=== PATIENT | female | born 2000 | race Caucasian/White ===

== ENCOUNTER 2024-01-25 08:14 | Inpatient (IN) | payer OTHER, BC, SELFPAY ==
[2024-01-25] VITALS (39 sets, daily range): BP systolic 79–128; BP diastolic 46–84; PULSE 78–137; RESP 16; TEMP 36.3–37.4; O2SAT 75–100; BMI 31.7; BMI 24.4
--- NOTE | 2024-01-25 08:25 | ED.RN ---
incorrect weight entered in error. actual weight is 147lbs
[2024-01-25] MEDS: Lactated Ringers 1,000 ML 200 ML IV ×2 (09:30→14:05)
[2024-01-25 09:38] LABS: Absolute Neutrophil Count 7.7 X10^3/uL (2.0-7.7); Basophil# 0.03 X10^3/uL; Basophil% 0.3 % (0-1); Eosinophil# 0.05 X10^3/uL; Eosinophils% 0.5 % (0-5); Hemoglobin 14.4 g/dL (12.0-15.0); Lymphocyte % 13.6 % (19-41); Mean Corp Hgb Conc 34.3 g/dL (32-36); Mean Corpuscular Hgb 29.9 pg (27.0-32.0); Mean Corpuscular Volume 87.3 fL (81-99); Mean Platelet Vol. 9.6 fl (6.2-12.0); Monocyte# 0.43 X10^3/uL; Monocyte% 4.5 % (0-10); NRBC Flagged by Analyzer 0 % (0-5); Neutrophil # 7.65 X10^3/uL (2.7-7.7); Neutrophil % 80.2 % (47-70); Platelet Count 233 K/mm3 (150-450); RBC Distribution Width CV 12.6 % (11.6-14.6); RBC Distribution Width SD 39.6 fl (35.1-43.9); Red Blood Count 4.81 M/mm3 (4.2-5.4); White Blood Count 9.6 K/mm3 (4.4-11.0)
[2024-01-25 09:54] LABS: Prothrombin Time (Protime)PT. 13.3 SECONDS (11.7-14.9)
[2024-01-25 10:36] LABS: Fibrinogen 541 mg/dl (203-444)
[2024-01-25 10:46] LABS: Syphilis Antibodies Non-reactive
--- NOTE | 2024-01-25 12:20 | PCM.HP.OB ---
HPI - General General Date of Admission: 01/25/24 Date of Service: 01/25/24 HPI Narrative CASIE DUNCAN, is a 23 F who presents with vaginal bleeding. Maternal Data Information Final ADRIEL: [birth year] Gestational age: 38&3 PFSH PFSH Allergy/AdvReac Type Severity Reaction Status Date / Time No Known Allergies Allergy Verified 06/01/15 14:53 Surgical History History of surgery Social History Smoking Status: Never smoker History Elective abortions Hx Para 0 Spontaneous abortions Hx # Term Pregnancies Ectopic pregnancies Hx # Pregnancies Multiple births # of living children NST FHR Rate Baby A Baseline: 130 Variability:: Moderate Accelerations:: 15 x 15 Decelerations:: None Uterine Activity:: Q 2-5 minutes Vital Signs Vital Signs Vital Signs: 01/25/24 08:07 01/25/24 08:07 01/25/24 10:41 Temperature Temperature Source Temporal Pulse Rate 86 Respiratory Rate Blood Pressure 112/84 H BP Systolic 112 BP Diastolic 84 01/25/24 10:41 01/25/24 10:41 01/25/24 10:41 Temperature Temperature Source Pulse Rate 84 Respiratory Rate 16 Blood Pressure 109/76 BP Systolic 109 BP Diastolic 76 01/25/24 10:41 Temperature 97.4 F L Temperature Source Pulse Rate Respiratory Rate Blood Pressure BP Systolic BP Diastolic Weight Weight: 147 lb Body Mass Index (BMI) 24.4 Physical Exam Const alert, oriented x3 and no apparent distress GI soft to palpation, non-tender and non-distended Inspection: gravid external exam normal Narrative: cvx - 5/90/-2, AROM blood tinged fluid Labs Labs Labs: Blood Type A POSITIVE Antibody Screen NEGATIVE Hct 42.0 % (37-47) Hgb 14.4 g/dL (12.0-15.0) Syphilis Total Ab Non-reactive see [facility] H&P Assessment & Plan (1) 38 weeks gestation of : COMMENT: @ 38&3 (2) Vaginal bleeding: PLAN: Plan Admit to L&D Vaginal bleeding - suspect placenta abruption. Placental abruption labs normal. AROM & IUPC placed. Will start pitocin if needed for augementation. Pain - epidural as desired GBS negative EFW - less than 4500g and patient with adequate pelvis ROutine care
[2024-01-25] MEDS: Oxytocin 15 Units/NS 250ml 15 UNITS/250 ML IV.SOLN 2 UNITS IV (12:41)
[2024-01-25] MEDS: LACTATED RINGERS 500 ML 999 ML IV (15:15)
[2024-01-25] MEDS: fentaNYL-bupivacaine (epidural) 100 ML BAG EPIDURAL (16:16)
--- NOTE | 2024-01-25 16:32 | EX.PCM.OBRPT ---
Maternal Data Information Final ADRIEL: [birth year] Gestational age: 38&3 Vaginal Delivery Maternal Presentation Maternal Presentation: Active Labor Operative Information Date of Procedure: 01/25/24 Pre-Operative Diagnosis: (1) Labor (2) Suspected placental abruption Post-Operative Diagnosis: Same Surgery / Procedure Performed: Vacuum Assisted Vaginal Delivery Type of Anesthesia: Epidural Estimated Blood Loss: 300ml Findings Description of Procedure: Patient prepped & draped when C/C/+2. She pushed well but fhts persisted in the 50's. Decision made to use vacuum. head position had already been confirmed. Vacuum was placed on head and positioning confirmed. With one gentle pull and good maternal pushing the head delivered. Vacuum released and then head gently guided to allow delivery of anterior and posterior shoulders. No excess traction placed on head. Body delivered and 3VC clamped & cut in delayed fashion. Placenta delivered with gentle traction and good uterine tone obtained. Presentation: LETICIA Amniotic Membrane Rupture Type: Artificial Amniotic Fluid Description: Bloody Placental Delivery Description: Expressed Placenta Disposition: [facility] Specimen(s) Removed: Placenta Cord Vessel Description: 3 Vessels Cord Entanglement: Around neck x 1, loose Nuchal Cord Compression: With compression Infant A Gender: Female (1 minute): 7 (5 minute): 9 Delayed Cord Clamping: Yes Post Vaginal Delivery Medications Given After Delivery: IV Pitocin Episiotomy Description: None Laceration: 1st degree (bilateral vaginal -repaired with 3-0 vicryl) Complication Complications: None
[2024-01-25] MEDS: Oxytocin 15 Units/NS 250ml 15 UNITS/250 ML IV.SOLN 83 UNITS IV (18:33)
[2024-01-25] MEDS: Ibuprofen 600 MG Tablet PO (20:56)
[2024-01-26 00:15] VITALS: BP 104/72; PULSE 96; RESP 16; TEMP 37.2; O2SAT 97
[2024-01-26 04:50] VITALS: BP 105/63; PULSE 63; RESP 16; TEMP 37; O2SAT 97
[2024-01-26 08:23] VITALS: BP 101/77; PULSE 81; RESP 16; TEMP 36.5
[2024-01-26] MEDS: Ibuprofen 600 MG Tablet PO ×2 (08:34→14:54)
[2024-01-26] MEDS: Senna/Docusate Sodium 1 Tablet PO (08:34)
--- NOTE | 2024-01-26 08:40 | PN.OBGYN_ITS ---
Subjective Subjective Doing well. Ambulating without difficulty. Voiding. Pain controlled. Breast feeding. Objective Data Objective Data Vital Signs: Vital Signs Temp Pulse Resp BP Pulse Ox O2 Del Method 97.7 F L 81 16 101/77 97 Room Air 01/26/24 08:23 01/26/24 08:23 01/26/24 08:23 01/26/24 08:23 01/26/24 04:50 01/26/24 04:50 Oxygen Delivery Method Room Air Weight: 66.678 kg Body Mass Index (BMI) 24.4 Intake & Output: Intake and Output for Last 24 Hours 01/24/24 01/25/24 01/26/24 23:59 23:59 23:59 Intake Total 2583.00 / 2583.00 Output Total 1200 / 1200 Balance 1383.00 / 1383.00 Lab / Micro Data 01/25/24 09:15 Labs: Laboratory Results - last 24 hr 01/25/24 09:15: WBC 9.6, RBC 4.81, Hgb 14.4, Hct 42.0, MCV 87.3, MCH 29.9, MCHC 34.3, RDW Std Deviation 39.6, RDW Coeff of Adelaida 12.6, Plt Count 233, MPV 9.6, Immature Gran % (Auto) 0.900, Neut % (Auto) 80.2 H, Lymph % (Auto) 13.6 L, [place] % (Auto) 4.5, Eos % (Auto) 0.5, Baso % (Auto) 0.3, Absolute Neuts (auto) 7.7, Absolute Lymphs (auto) 1.30, Nucleated RBC % 0, PT 13.3, INR 1.0, APTT 26.0, F ibrinogen 541 H, Syphilis Total Ab Non-reactive, Blood Type A POSITIVE, Antibody Screen NEGATIVE Physical Exam Const alert and no apparent distress Narrative: Fundus firm, below umbilicus. Assessment & Plan (1) 38 weeks gestation of : COMMENT: @ 38&3 (2) Vacuum extractor delivery, delivered: PLAN: Plan Routine post care
[2024-01-26 12:21] VITALS: BP 115/92; PULSE 92; RESP 16; TEMP 37; O2SAT 98
[2024-01-26 17:00] VITALS: BP 106/69; PULSE 83; RESP 16; TEMP 37.1; O2SAT 98
[2024-01-26] MEDS: Acetaminophen 500 MG Tablet 1000 MG PO (19:08)
[2024-01-26 20:30] VITALS: BP 110/85; PULSE 94; RESP 16; TEMP 36.3; O2SAT 97
[2024-01-27] MEDS: Acetaminophen 500 MG Tablet 1000 MG PO ×2 (02:04→08:44)
[2024-01-27 02:09] VITALS: BP 120/80; PULSE 96; RESP 16; TEMP 36.4; O2SAT 98
[2024-01-27 07:25] VITALS: BP 109/84; PULSE 105; RESP 16; TEMP 36.6
--- NOTE | 2024-01-27 08:13 | PCM.DC.SUM ---
Providers Date of Admission: 01/25/24 Primary Care Physician: No Primary Care Phys Reason For Visit: VAGINAL DELIVERY Diagnosis Discharge Diagnosis (1) 38 weeks gestation of : Status: Acute Code(s): Z3A.38 - 38 weeks gestation of (2) Vacuum extractor delivery, delivered: Status: Acute Code(s): O75.9 - Complication of labor and delivery, unspecified Medications at Discharge Home Medications acetaminophen 500 mg tablet 1,000 mg (2 x 500 mg) PO Q6H PRN PRN Pain 1-10 Or Fever #0 tabs 01/27/24 ibuprofen 600 mg tablet 600 mg PO Q6H PRN PRN Pain Score 1-10 #0 tabs 01/27/24 Hospital Course Operations None Procedures None Summary of Care Provided Minutes Spent on Discharge: 15 Hospital Course: Patient had VAVD. Hospital course was uneventful Physical Exam Const alert and no apparent distress General Appearance: cooperative and comfortable Exam Limitations: no limitations HEENT normocephalic Eyes General Eye: normal appearance of both eyes Neck full ROM General: normal visual inspection Chest Chest: symmetrical chest wall rise Resp normal respiratory effort and normal air movement Effort and Inspection: symmetric chest movement Auscultation: clear to auscultation bilaterally Cardio regular rate and regular rhythm GI normal to inspection, nondistended, normoactive bowel sounds Back/Spine normal ROM Extremity full ROM and no calf tenderness General Extremity: normal exam except as noted Skin no rashes or lesions noted Neuro CN's II-XII intact bilaterally Psych mental status grossly normal Weight / BMI Weight Weight: 147 lb Body Mass Index (BMI) 24.4 ABG / Lab / Microbiology Data 01/25/24 09:15 D/C Instructions Discharge Diet: No restrictions May resume sexual activity in: 6-8 weeks Weight Bearing Status: Weight bearing as tolerated Call your doctor if you observe: Fever of 101 or Higher, Inability to urinate, Using more than 1 pad per hour, Shortness of breath, Chest pain, Calf discomfort and Uncontrolled pain Please Follow Up With: Lanny Kimbrough CNM When: 2 weeks virtual visit/ 6 weeks in office Meaningful Use Info Meaningful Use Meaningful Use Diagnoses (Choose all that apply): None applicable Ischemic Stroke Statin Dosing Therapy Reference: STATIN DOSE THERAPY REFERENCE: * Patients > 75 years receive moderate or high dose statin therapy. * Patients 75 years or YOUNGER should receive HIGH intensity statin dose unless contraindicated. You will be required to document reason for non-treatment if statin daily dose does not meet guidelines. HIGH DOSE STATIN THERAPY DAILY Atorvastatin > than or = to 40 mg Rosuvastatin > than or = to 20 mg Amlodipine + Atorvastatin > than or = to 2.5/40 mg Ezetimibe + Simvastatin 10/80 mg Simvastatin 80mg Discharge Plan Admission Admit Date/Time: 01/25/24 08:14 Primary Reason for Your Visit: Labor and Delivery Attending Provider: Enid Boyd Primary Care Provider: Care Physician,Krystal Primary Discharge Orders/Prescriptions Prescriptions: New acetaminophen 500 mg Tablet 1,000 mg PO Q6H PRN PRN (Reason: Pain 1-10 Or Fever) Qty: 0 0RF ibuprofen 600 mg Tablet 600 mg PO Q6H PRN PRN (Reason: Pain Score 1-10) Qty: 0 0RF Referrals / Follow Up: Care Physician,No Primary [Primary Care Provider] - Disposition Disposition (needs filled in before D/C Order can be placed): Home, Self Care
[2024-01-27] MEDS: Senna/Docusate Sodium 1 Tablet PO (08:44)
[2024-01-27 09:58] VITALS: BP 109/84; PULSE 105; RESP 16; TEMP 36.6
== END 2024-01-27 09:45 | disposition home or self-care (01) | DRG 807 ==
PROVIDERS: Admitting Provider Obstetrics & Gynecology; Referring Provider Obstetrics & Gynecology; Visit Provider Obstetrics & Gynecology
DX: O45.93 Premature separation of placenta, unspecified, third trimester (principal); Z37.0 Single live birth; O70.0 First degree perineal laceration during delivery; Z3A.38 38 weeks gestation of pregnancy
CPT/HCPCS: 59025; 59050; 85025; 85384; 85610; 85730; 86780; 86850; 86900; 86901; 99221; J7120; G0378